=== PATIENT | female | born 1960 | race Caucasian/White ===

== ENCOUNTER 2016-11-08 02:12 | Emergency (ER) ==
--- NOTE | 2016-11-08 02:58 | PROVIDER DOCUMENTATION ---
HPI-Musculoskeletal Pain/Inj - GENERAL Source: patient - HX OF PRESENT ILLNESS-MUSKULOSKELTAL Quality of Pain: reports: aching, pressure Severity in ED: moderate, severe Onset/Duration: 3 days ago Timing: still present Modifying Factors: improves with: nothing Any recent injury?: No Locality of Occurance: Home Similar Symptoms Previously?: No - BACK & NECK PAIN/INJURY Back/Neck Pain Location: reports: other (cva tenderness) Back/Neck Pain Radiation: reports: Lower Legs, Other (abdomen) Context / Method of Injury: reports: unknown Associated Symptoms: reports: lower back pain. denies: fever - LOWER EXTREMITY PAIN/INJURY Lower Extremities Pain: leg: bilateral Associated Symptoms: reports: lower back pain <Amarilys Castellanos - Last Filed: 11/08/16 02:54> <Ishan Adan - Last Filed: 11/08/16 06:01> - GENERAL Chief Complaint: Flank Pain Stated Complaint: KIDNEY PROBLEMS Time Seen by Provider: 11/08/16 02:54 - HX OF PRESENT ILLNESS-MUSKULOSKELTAL Nature of Presenting Problem: 55 Y/O F presents to ED with Flank Pain. pt states onset was Monday 3x days ago. States recently was on a plane. Pt c/o of bilateral flank plain with radiation done legs and into abdomen. Denies cough, SOB. States hx of L1 L3 and L4 perfusion. (Amarilys Castellanos) Review of Systems - Adult - REVIEW OF SYSTEMS - ADULT Constitutional: denies: chills, fever Gastrointestinal: reports: abdominal pain. denies: diarrhea, nausea, vomiting Musculoskeletal: reports: back pain, muscle aches <Amarilys Castellanos - Last Filed: 11/08/16 02:54> Past History - Adult - PAST MEDICAL HISTORY-ADULT Review of Records: reports: Old Records Reviewed, Nursing Assessment Review, Medications Reviewed, Social history reviewed & non-contributory. Major Childhood Illnesses: reports: denies history Cardiovascular: reports: HTN, hyperlipidemia Respiratory: reports: denies history Gastrointestinal: reports: denies history Obstetrical/Gynecological: reports: denies history Genitourinary: reports: other (renal disease) Musculoskeletal: reports: denies history Neurological: reports: denies history Psychiatric: reports: depression Endocrine/Immune: reports: denies history Other Conditions: reports: other cancer (breast) - PRIOR SURGERIES/PROCEDURES Surgical/Procedure History: reports: cholecystectomy, breast, back/neck - IMMUNIZATION STATUS Childhood Immunizations: See Nurse Assessment Flu Vaccine: See Nurse Assessment - FAMILY HISTORY Family History: reviewed, not pertinent - SOCIAL HISTORY Smoking: quit greater than 1 year Substance Use: none/never Alcohol Use Frequency: never Living Situation: family <Amarilys Castellanos - Last Filed: 11/08/16 02:54> Physical Exam-Injury Related - Physical Exam-Injury Related General Appearance: appears well, alert, no apparent distress Eyes: PERRL/EOMI, pink conjunctivae, fundi clear, no AV nicking Head, Ears, Nose, Mouth & Throat: normocephalic/atraumatic, moist mucous membranes, normal ENT inspection, TMs normal, pharynx normal Neck: non-tender, full range of motion, supple, normal inspection Respiratory: chest non-tender, lungs clear, normal breath sounds Cardiovascular: normal peripheral pulses, regular rate, rhythm Abdominal Exam: normal bowel sounds, non tender, soft Back Exam: CVA tenderness Extremity: normal range of motion Integumentary: normal color, warm/dry Neurologic: harness fitter II-XII nml as tested Psych/Mental Status: normal mood/affect, normal thought content, normal thought process, oriented x 3 - Glascow Coma Score Best Eye Response ([place]): (4) open spontaneously Best Verbal Response ([place]): (5) oriented Best Motor Response ([place]): (6) obeys commands [place] Total: 15 <Amarilys Castellanos - Last Filed: 11/08/16 02:54> Progress <EmanuelAmarilys - Last Filed: 11/08/16 02:54> - CT/MRI 1 Impression: Normal <Ishan Adan - Last Filed: 11/08/16 06:01> - PLAN OF CARE/RESULTS Progress/Plan/Lab Results: Laboratory Tests 11/08/16 11/08/16 11/08/16 02:45 03:10 03:10 WBC RBC Hgb Hct MCV MCH MCHC RDW Std Deviation Plt Count MPV Immature Gran % (Auto) Neut % (Auto) Lymph % (Auto) Cottle % (Auto) Eos % (Auto) Baso % (Auto) Immature Gran # (Auto) Neut # (Auto) Lymph # (Auto) Cottle # (Auto) Eos # (Auto) Baso # (Auto) Sodium 139 Potassium 3.6 Chloride 103 Carbon Dioxide 26 Anion Gap 10 BUN 14 Creatinine 0.5 Estimated GFR/1.73 m2 > 60 BUN/Creatinine Ratio 28 Glucose 111 H Calculated Osmolality 279 Calcium 9.1 Total Bilirubin 0.30 AST 8 L ALT < 5 L Alkaline Phosphatase 102 Creatine Kinase Troponin T < 0.010 Total Protein 7.2 Albumin 4.0 Globulin 3.0 Albumin/Globulin Ratio 1.0 Urine Source CLEAN CATCH Urine Color YELLOW Urine Clarity CLEAR Urine pH 6.5 Ur Specific Arvin 1.010 Urine Protein NEGATIVE Urine Ketones NEGATIVE Urine Blood TRACE Urine Nitrite NEGATIVE Urine Bilirubin NEGATIVE Urine Urobilinogen NORMAL Urine Microscopic RBC <10 Urine WBC 2+ A Urine Microscopic WBC 10-20 A Ur Epithelial Cells <10 Urine Bacteria 2+ Urine Glucose NEGATIVE 11/08/16 11/08/16 03:10 03:10 WBC 9.53 RBC 4.38 Hgb 12.1 Hct 36.6 L MCV 83.6 MCH 27.6 MCHC 33.1 RDW Std Deviation 15.3 H Plt Count 281 MPV 8.9 Immature Gran % (Auto) 0.2 Neut % (Auto) 64.4 Lymph % (Auto) 26.7 Cottle % (Auto) 7.8 Eos % (Auto) 0.6 Baso % (Auto) 0.3 Immature Gran # (Auto) 0.02 Neut # (Auto) 6.14 Lymph # (Auto) 2.54 Cottle # (Auto) 0.74 H Eos # (Auto) 0.06 Baso # (Auto) 0.03 Sodium Potassium Chloride Carbon Dioxide Anion Gap BUN Creatinine Estimated GFR/1.73 m2 BUN/Creatinine Ratio Glucose Calculated Osmolality Calcium Total Bilirubin AST ALT Alkaline Phosphatase Creatine Kinase 50 Troponin T Total Protein Albumin Globulin Albumin/Globulin Ratio Urine Source Urine Color Urine Clarity Urine pH Ur Specific Arvin Urine Protein Urine Ketones Urine Blood Urine Nitrite Urine Bilirubin Urine Urobilinogen Urine Microscopic RBC Urine WBC Urine Microscopic WBC Ur Epithelial Cells Urine Bacteria Urine Glucose Orders Category Date Time Status RENAL STONE SEARCH [CT] Stat Exams 11/08/16 03:58 Taken CBC WITH DIFF [HEME] Stat Lab 11/08/16 03:10 Completed CK PROFILE [SP CHEM] Stat Lab 11/08/16 03:10 Completed CMP [COMPREHENSIVE METABOLIC PANEL] [CHEM] Stat Lab 11/08/16 03:10 Completed TROPONIN T Stat Lab 11/08/16 03:[address] W/POSS RFLX CULT [URINALYSIS] Stat Lab 11/08/16 02:45 Completed URINE CULTURE [RM] Routine Lab 11/08/16 03:21 Ordered Lido/[place]ara Alk/Al&mg Hydrox [G.i. Cocktail] Med 11/08/16 04:51 Discontinued 30 ml PO NOW ONE Vital Signs - 24 hr 11/08/16 02:15 Temperature 97.5 F L Pulse Rate 88 Respiratory 20 Rate Blood Pressure 145/109 O2 Sat by Pulse 96 Oximetry (Ishan Adan) Departure <Amarilys Castellanos - Last Filed: 11/08/16 02:54> - Departure Time of Disposition Order: 05:59 Certified Medical Emergency: Emergent <Ishan Adan - Last Filed: 11/08/16 06:01> - Departure DIAGNOSIS: Abdominal pain Disposition: HOME 01 Condition: Stable Additional Instructions: see dr omalley in 4 hrs ED Follow Up Instructions: You have been treated by a care provider in the Emergency Department. These instructions are being provided to you so you can have an understanding of how to care for yourself upon discharge. Upon discharge from the Emergency Department, you are responsible for making arrangements for follow-up care by a physician of your choice. Take all prescribed medications as directed. Return to the Emergency Department immediately for any new or worsening symptoms. You may call the Physician Referral phone number at [phone] to obtain a list of Physicians who are taking new patients. Attestation - Scribe Verification/Attestation Scribe:: Amarilys Castellanos Acting as Scribe for:: Ishan Adan Scribe documention review:: This chart was documented by a scribe and accurately reflects the service the provider performed and the decisions made by the provider. <Amarilys Castellanos - Last Filed: 11/08/16 02:54> Physician Attestation
[2016-11-08 02:59] LABS: URINE SOURCE CLEAN CATCH
[2016-11-08 03:15] LABS: MANUAL DIFF NEEDED? NO
[2016-11-08 03:19] LABS: BASO% 0.3 % (0.0-0.8); EOS# 0.06 X1000 (0.0-0.7); EOS% 0.6 % (0.0-10.0); HEMATOCRIT 36.6 % (37.0-47.0); HEMOGLOBIN 12.1 g/dL (12.0-16.0); IMM GRAN# 0.02 X1000 (0.0-0.04); IMM GRAN% 0.2 % (0.0-0.5); LYMPH# 2.54 X1000 (1.2-3.4); LYMPH% 26.7 % (20.5-51.1); MCH 27.6 PG (27-31); MCHC 33.1 g/dL (33-37); MCV 83.6 FL (81-99); MONO# 0.74 X1000 (0.11-0.59); MONO% 7.8 % (1.7-9.3); MPV 8.9 FL (7.4-10.4); NEUT% 64.4 % (42.2-75.2); PLT 281 X1000 (130-400); RBC 4.38 XMIL (4.2-5.4)
[2016-11-08 03:20] LABS: BILIRUBIN URINE NEGATIVE (NEGATIVE); BLOOD URINE TRACE (NEGATIVE); CLARITY CLEAR (CLEAR); COLOR YELLOW; GLUCOSE URINE NEGATIVE (NEGATIVE); LEUKOCYTES URINE 2+ (NEGATIVE); NITRITE URINE NEGATIVE (NEGATIVE); PH URINE 6.5; PROTEIN URINE NEGATIVE (NEGATIVE); UROBILINOGEN URINE NORMAL
[2016-11-08 03:21] LABS: URINE CULTURE PL NEEDED? YES; URINE EPITHELIAL CELLS <10 /HPF (<10); URINE RBC <10 /HPF (<10)
[2016-11-08 03:34] LABS: AGAP 10; ALKALINE PHOSPHATASE 102 U/L (32-104); BUN 14 mg/dL (8-22); CALCIUM 9.1 mg/dL (8.8-10.2); CHLORIDE 103 mmol/L (98-107); COSMO 279; GOT 8 U/L (10-30); GPT < 5 U/L (10-36); POTASSIUM 3.6 mmol/L (3.5-5.1); SODIUM 139 mmol/L (136-145); TCO2 26 mmol/L (25-35); TOTAL PROTEIN 7.2 g/dL (6.3-8.3)
[2016-11-08] MEDS ORDERED: G.I. COCKTAIL PO ONE (04:51)
[2016-11-08] MEDS ORDERED: PHENERGAN PO ONE (06:01)
[2016-11-08] MEDS ORDERED: NORCO-7.5 PO ONE (06:01)
[2016-11-08 06:21] VITALS: BP 154/94
--- NOTE | 2016-11-08 06:41 | Diag Imaging Result Document ---
PROCEDURE NAME: RENAL STONE SEARCH - 11/08/2016 CT ABDOMEN AND PELVIS WITHOUT ORAL OR INTRAVENOUS CONTRAST: COMPARISON: Compared to 01/20/2016. FINDINGS: The gallbladder has been removed. Normal spleen and adrenal glands. There is fatty infiltration of the pancreas. No adjacent inflammation. No focal hepatic abnormality identified on this noncontrasted exam. No perinephric inflammation. No renal stones. No hydronephrosis. Normal aorta. No bowel obstruction. Normal appendix. No abscess. No free air. There has been extensive surgery to the lower back. Normal uterus. Neither ovary is enlarged. The urinary bladder is not distended. IMPRESSION: 1. No renal stones or hydronephrosis. 2. Cholecystectomy. A preliminary report was given at 4:47 a.m.
== END 2016-11-08 06:21 | disposition home or self-care (01) ==
LOC: P.ED 02:12
DX: R10.9 Unspecified abdominal pain (principal); M54.5 Low back pain; M79.605 Pain in left leg; M79.604 Pain in right leg; M79.1 Myalgia; I10 Essential (primary) hypertension; E78.5 Hyperlipidemia, unspecified; Z85.3 Personal history of malignant neoplasm of breast; Z87.891 Personal history of nicotine dependence
CPT/HCPCS: 74176; 80053; 81001; 82550; 84484; 85025; 87077; 87088; 87186

== ENCOUNTER 2018-11-28 09:25 | Day surgery (SDC) ==
[2018-11-26 14:07] LABS: HEMATOCRIT 42.6 % (37.0-47.0); MCH 28.7 PG (27-31); MCHC 32.9 g/dL (33-37); MCV 87.3 FL (81-99); RBC 4.88 XMIL (4.2-5.4); RDW 14.7 % (11.5-14.5); WBC 9.21 X1000 (4.8-10.8)
[2018-11-26 14:45] LABS: AGAP 14; BUN 11 mg/dL (8-22); CALCIUM 9.8 mg/dL (8.8-10.2); CHLORIDE 106 mmol/L (98-107); COSMO 283; CREATININE 0.8 mg/dL (0.5-0.9); ESTIMATED GFR > 60; GLUCOSE 107 mg/dL (70-104); SODIUM 142 mmol/L (136-145); TCO2 22 mmol/L (25-35)
--- NOTE | 2018-11-26 15:06 | EKG Report ---
Test Performed on : 11/26/2018 1:37:17 PM Test Reason : PAT Blood Pressure : / mmHG Vent. Rate : 083 BPM Atrial Rate : 083 BPM P-R Int : 162 ms QRS Dur : 086 ms QT Int : 352 ms P-R-T Axes : 073 045 068 degrees QTc Int : 413 ms Sinus rhythm. with marked sinus arrhythmia. Otherwise normal ECG When compared with ECG of 30-DEC-2015 05:05, QT has shortened Unconfirmed Result
[2018-11-28] MEDS ORDERED: LR 1,000 ML ONE (09:42)
[2018-11-28] MEDS ORDERED: VALIUM ONE (09:43)
[2018-11-28] MEDS ORDERED: PEPCID ONE (09:43)
[2018-11-28] MEDS ORDERED: TRANSDERM-SCOP ONE (09:43)
[2018-11-28] MEDS ORDERED: KEFZOL 1 GM/D5W 1 GM/50 ML IVPB ONE (09:43)
[2018-11-28] MEDS ORDERED: REGLAN ONE (09:43)
[2018-11-28] MEDS ORDERED: VERSED ONE ×2 (10:57→11:13)
[2018-11-28] MEDS ORDERED: DIPRIVAN 1% ONE (11:49)
[2018-11-28] MEDS ORDERED: SENSORCAINE 0.5%-EPI 1:200,000 ONE (11:50)
[2018-11-28] MEDS ORDERED: XYLOCAINE-MPF 2% ONE (11:50)
[2018-11-28] MEDS ORDERED: METHYLENE BLUE 0.5% ONE (11:50)
[2018-11-28] MEDS ORDERED: QUELICIN (DOSE) ONE (11:58)
[2018-11-28] MEDS ORDERED: DECADRON ONE (12:26)
[2018-11-28] MEDS ORDERED: ZOFRAN ONE (12:26)
[2018-11-28] MEDS ORDERED: TORADOL ONE (12:27)
[2018-11-28] MEDS ORDERED: MORPHINE ONE (12:28)
[2018-11-28] MEDS: DILAUDID ONE ×4 (13:58→14:16)
[2018-11-28] MEDS ORDERED: PHENERGAN ONE (14:29)
[2018-11-28] MEDS ORDERED: NORCO-10 ONE (14:47)
[2018-11-28] MEDS ORDERED: TORADOL IV SCH (15:00)
[2018-11-28] MEDS ORDERED: PHENERGAN IM PRN (15:00)
--- NOTE | 2018-11-28 15:57 | OPERATIVE NOTE ---
PROCEDURE DATE : 11/28/2018 PREOPERATIVE DIAGNOSIS: Left breast cancer. POSTOPERATIVE DIAGNOSIS: Left breast cancer. PRINCIPAL PROCEDURE: 1. Injection of left periareolar blue dye for identification of left axillary sentinel lymph nodes. 2. Left total mastectomy. 3. Left axillary sentinel lymph node biopsy x3. SURGEON: Nasreen Byrne MD. IC ENGINEER: dominguez Smith. ANESTHESIA: General. ESTIMATED BLOOD LOSS: 50 mL. DRAINS: Two #10 flat Harlan-Dubose drains. INDICATIONS: Ms. José Heredia is a 58-year-old overweight white female, who has had a history of right breast cancer and required a right mastectomy more than 10 years ago. Most recently, it was noted that she had a small density on left breast mammogram. It was seen also by ultrasound and was felt to be irregular and biopsy was recommended. A biopsy documented an invasive cancer stage I and we discussed treatment options and she chose a left mastectomy with sentinel lymph node biopsy. FINDINGS: We performed a left breast mastectomy. We identified 3 sentinel nodes in the left axilla using the navigator. These did not feel abnormal on palpation. There were no matted together and they were not abnormally enlarged. PROCEDURE: The patient prior to going surgery was injected by nuclear medicine for identification of left axillary sentinel lymph nodes. She was then brought to the operating room, where she received general anesthesia and was intubated, and her left breast and axilla were prepped and draped within a sterile field. She received Ancef prophylactically. I injected her with 6 mL of periareolar blue dye to further help us identify the axillary sentinel lymph nodes. I then marked an elliptical incision encompassing her left breast and made my incision with a 10 blade scalpel. I then used the cautery to create our flaps. Our superior flap went to the left clavicle, medial flap to the sternum, inferior flap to the inframammary fold, and then I removed the breast from the pectoralis major muscle [id number]. We tried to control bleeding as we encountered it using the cautery or 3-0 silk ties or suture ligatures. I used the navigator to identify the left axillary sentinel lymph nodes, they were removed and sent to the pathologist for frozen section. I removed the breast from the axillary contents and it was sent to the pathologist for permanent section. Again, any bleeding was controlled using the cautery. I placed two 10 flat Harlan- Dubose drains within our wound, and then I closed our wound transversely in 2 layers, first layer is interrupted 3-0 Vicryl stitches to close the subcutaneous tissue, skin was closed with a skin clip display and banner designer. Xeroform followed by a dry dressing was applied. I brought the drains out through separate stab incisions anterior axillary line and they were secured to the skin with two 3-0 nylon stitches. Dressings were applied. She will go to the recovery room and then be hospitalized at least overnight. cc: Nasreen Byrne MD
[2018-11-28] MEDS ORDERED: BLISTEX MEDICATED BERRY LIP BALM TOP PRN (16:17)
[2018-11-28] MEDS: TORADOL IV SCH (17:19)
[2018-11-28] MEDS: NORCO-10 PO PRN ×2 (19:30→23:32)
[2018-11-28] MEDS ORDERED: PRAVACHOL PO SCH (21:00)
[2018-11-28] MEDS ORDERED: AMBIEN PO SCH (21:00)
[2018-11-28] MEDS: PERIDEX MT SCH (21:40)
[2018-11-28] MEDS: TOPAMAX PO SCH (21:41)
[2018-11-28] MEDS ORDERED: SYNTHROID PO SCH (22:30)
[2018-11-29] MEDS: NORCO-10 PO PRN ×2 (04:07→08:36)
[2018-11-29] MEDS: TORADOL IV SCH ×2 (06:51)
[2018-11-29] MEDS: PERIDEX MT SCH (08:01)
[2018-11-29] MEDS: TOPAMAX PO SCH (08:01)
[2018-11-29 08:13] VITALS: BP 137/72
[2018-11-29] MEDS ORDERED: OLMESARTAN MEDOXOMIL PO SCH (09:00)
[2018-11-29] MEDS ORDERED: SYNTHROID PO SCH (09:00)
--- NOTE | 2018-11-30 03:24 | DISCHARGE SUMMARY ---
ADMISSION DATE: 11/28/2018 DISCHARGE DATE: 11/29/2018 ADMITTING DIAGNOSIS: Left breast cancer. DISCHARGE DIAGNOSIS: Left breast cancer. PRINCIPLE PROCEDURE: 1. Injection of periareolar blue dye for identification of left axillary sentinel lymph node. 2. Left total mastectomy. 3. Left axillary sentinel lymph node biopsy. DISCHARGE DISABILITY: Full. DISCHARGE DISPOSITION: She will return to our outpatient offices next week for followup. DISCHARGE DIET: Regular. DISCHARGE MEDICATIONS: She is to return to her home medications. HOSPITAL COURSE: Mrs José Heredia is a 58-year-old white female who was diagnosed with right breast cancer over 10 years ago and underwent a mastectomy and adjuvant treatment. Most recently, she had an abnormal left breast mammogram and ultrasound. Biopsies documented an invasive small cancer of the left breast. We discussed treatment options, then she chose a mastectomy on the left side. She was admitted on the day of surgery and underwent a left total mastectomy with left axillary sentinel lymph node biopsy. Frozen section of the sentinel lymph nodes were negative for cancer and we did not do a completion dissection of the left axilla. Two drains were left at the time of surgery. She went to the recovery room and then was hospitalized overnight on the [address] [place] [address] [place]. On postop day 1, she had no abnormal swelling or hematoma involving her left mastectomy site. Her drains had acceptable drainage and she was able to tolerate a diet, move around in her room. I will discharge her home under the care of her , with followup in my outpatient offices next week. cc: Nasreen Byrne MD
== END 2018-11-29 11:59 | disposition home or self-care (01) ==
LOC: 4N 09:25 → OR 09:25
PROVIDERS: ATTEND Surgery
CPT/HCPCS: 38792; 80048; 85027; 88307; 88331; 93005; 93010; 94761; 94799; A9270; A9520; J0330; J0690; J1100; J1170; J1885; J2250; J2270; J2405; J2550; J7120; Q9968